=== PATIENT | male | born 1980 | race Caucasian/White ===

== ENCOUNTER 2018-06-18 02:59 | Emergency (ER) | payer MEDICAID ==
[~2018-06-18] VITALS: Ht 167.6 cm; Wt 91.0 kg
[2018-06-18] MEDS ORDERED: HYDROCODONE/ACETAMINOPHEN 5/325MG TABLET PO ONE (11:00)
[2018-06-18] MEDS ORDERED: IBUPROFEN 600MG TABLET PO ONE (11:00)
[2018-06-18 14:36] VITALS: BP 115/74
== END 2018-06-18 14:37 | disposition home or self-care (01) ==
LOC: ER 02:59
DX: S02.31XA Fracture of orbital floor, right side, initial encounter for closed fracture (principal); J43.9 Emphysema, unspecified; F17.200 Nicotine dependence, unspecified, uncomplicated; F12.10 Cannabis abuse, uncomplicated; Y04.0XXA Assault by unarmed brawl or fight, initial encounter; Y93.89 Activity, other specified; Y92.89 Other specified places as the place of occurrence of the external cause; Y99.8 Other external cause status
CPT/HCPCS: 70450; 70486; 99284; Z7610

== ENCOUNTER 2021-03-15 01:27 | Emergency (ER) | payer MEDICAID ==
[~2021-03-15] VITALS: Ht 170.2 cm; Wt 90.5 kg
[2021-03-15 01:49] VITALS: BP 110/70
[2021-03-15] MEDS ORDERED: KETOROLAC 60MG/2ML VIAL IM STA (01:57)
[2021-03-15] MEDS ORDERED: ACETAMINOPHEN WITH CODEINE 300/30MG TABLET PO STA (01:57)
[2021-03-15] MEDS ORDERED: T3 PO (04:47)
[2021-03-15] MEDS ORDERED: IBUP-2030 PO (04:47)
== END 2021-03-15 05:25 | disposition home or self-care (01) ==
LOC: ER 01:27
DX: M25.551 Pain in right hip (principal); E78.00 Pure hypercholesterolemia, unspecified; F12.10 Cannabis abuse, uncomplicated
CPT/HCPCS: 73502; 96372; 99283; J1885

== ENCOUNTER 2021-11-04 10:23 | Emergency (ER) | payer SELFPAY ==
[~2021-11-04] VITALS: Ht 167.6 cm; Wt 82.0 kg
[~2021-11-04 10:23] MED LIST: IBUP-2030 PO; T3 PO
[2021-11-04] MEDS ORDERED: FLUORESCEIN SODIUM 1MG/STRIP BOTHEYE ONE (10:45)
[2021-11-04] MEDS ORDERED: TETRACAINE 0.5% OPHTH DROPS 4ML BOTHEYE ONE (10:45)
[2021-11-04] MEDS ORDERED: BO1 TP (11:21)
[2021-11-04] MEDS ORDERED: ACYC15OI7 TP (11:21)
[2021-11-04 11:47] VITALS: BP 135/60
== END 2021-11-04 11:48 | disposition home or self-care (01) ==
LOC: ER 10:23
DX: R21 Rash and other nonspecific skin eruption (principal); E78.00 Pure hypercholesterolemia, unspecified
CPT/HCPCS: 99283